=== PATIENT | female | born 1955 | race Caucasian/White ===

== ENCOUNTER 2020-05-04 21:46 | Observation (INO) ==
[2020-05-05] MEDS ORDERED: Naloxone 0.4 MG/ML INJ IVP PRN (01:47)
[2020-05-05] MEDS ORDERED: *HR* Heparin 5,000 UNIT/ML VIAL IVP ONE (01:51)
[2020-05-05] MEDS ORDERED: *HR* Heparin 5,000 UNIT/ML VIAL IVP PRN ×2 (01:51)
[2020-05-05 03:27] LABS: Hematocrit 40.4 % (35.3-44.9); Hemoglobin 12.8 g/dL (11.5-15.4); Mean Corpuscular HGB Conc 31.7 g/dL (31.6-35.5); Mean Corpuscular Hemoglobin 32.2 pg (28.0-33.3); Mean Corpuscular Volume 101.5 fL (83.0-100.0); Mean Platelet Volume 11.2 fL (9.4-12.4); Platelet Count 172 K/mcL (140-400); Red Blood Count 3.98 M/mcL (3.82-4.97); Red Cell Distribution Width 12.3 % (11.5-14.5)
[2020-05-05 03:32] LABS: Heparin anti-factor XA UFH 0.37 IU/mL (0.30-0.70)
[2020-05-05 03:33] LABS: Prothrombin Time 11.4 Seconds (9.4-12.1)
[2020-05-05] MEDS: Heparin 25,000 UNIT/250 ML D5W 25,000 UNIT/250 ML IV.SOLN IVC SCH (03:53)
[2020-05-05] MEDS ORDERED: Albuterol 2.5 MG/3 ML NEBULIZER IH PRN (06:46)
[2020-05-05] MEDS: predniSONE 20 MG TABLET PO SCH (09:38)
[2020-05-05] MEDS ORDERED: Acetaminophen 325 MG TABLET PO PRN (10:19)
[2020-05-05] MEDS ORDERED: Perflutren Lipid Microsphere 1.3 ML in 0.9 % Sodium Chloride 8.7 ML IVP PRN (10:22)
[2020-05-05] MEDS: Ipratropium/Albuterol Neb 3 ML IH SCH ×4 (10:28→23:42)
[2020-05-05] MEDS: Budesonide/Formoterol 160/4.5 1 PUFF INH IH SCH ×2 (10:38→23:42)
[2020-05-05] MEDS: Aspirin 81 MG TAB.CHEW PO SCH (11:51)
[2020-05-05] MEDS: *HR* LORazepam 1 MG TABLET PO PRN ×2 (17:41→23:16)
[2020-05-06 01:43] LABS: Basophils % 0.2 %; Eosinophils % 0.2 %; Hematocrit 39.6 % (35.3-44.9); Hemoglobin 12.6 g/dL (11.5-15.4); Immature Granulocytes % 0.4 % (0-4); Lymphocytes # 1.6 K/mcL (0.6-4.6); Lymphocytes % 16.2 %; Mean Corpuscular HGB Conc 31.8 g/dL (31.6-35.5); Mean Corpuscular Hemoglobin 31.5 pg (28.0-33.3); Mean Platelet Volume 11.1 fL (9.4-12.4); Monocytes # 1.7 K/mcL (0.0-1.3); Monocytes % 16.6 %; Neutrophils # 6.7 K/mcL (1.6-8.9); Platelet Count 199 K/mcL (140-400); Red Cell Distribution Width 12.4 % (11.5-14.5); Segmented Neutrophils % 66.4 %
[2020-05-06 01:44] LABS: White Blood Count 10.1 K/mcL (4.3-11.1)
[2020-05-06 02:00] LABS: BUN/Creatinine Ratio 15 (6-26); Blood Urea Nitrogen 11 mg/dL (8-23); Calcium 9.3 mg/dL (8.6-10.3); Carbon Dioxide 24 mEq/L (23-29); Chloride 104 mEq/L (98-107); Glucose 90 mg/dL (70-105); Osmolality,Calculated 285 (280-300); Potassium 3.7 mEq/L (3.5-5.1); Sodium 138 mEq/L (136-145); eGFR For African Americans > 60 (> 60); eGFR For Non-African Americans > 60 (> 60)
[2020-05-06 02:02] LABS: Chol/HDL Ratio 3.3 (0-4.9)
[2020-05-06] MEDS: Ipratropium/Albuterol Neb 3 ML IH SCH ×3 (03:43→15:35)
[2020-05-06] MEDS: Heparin 25,000 UNIT/250 ML D5W 25,000 UNIT/250 ML IV.SOLN IVC SCH (04:34)
[2020-05-06] MEDS: predniSONE 20 MG TABLET PO SCH (07:45)
[2020-05-06] MEDS: Aspirin 81 MG TAB.CHEW PO SCH (07:46)
[2020-05-06] MEDS: *HR* LORazepam 1 MG TABLET PO PRN (07:47)
[2020-05-06 08:59] LABS: Estimated Average Glucose 128 mg/dl
[2020-05-06] MEDS: Budesonide/Formoterol 160/4.5 1 PUFF INH IH SCH (11:27)
[2020-05-06] MEDS ORDERED: Nitroglycerin 1,000 MCG/10 ML VIAL IV ONE (14:10)
[2020-05-06] MEDS ORDERED: *HR* Heparin 10,000 UNIT/10 ML VIAL ONE (14:10)
[2020-05-06] MEDS ORDERED: ISOVUE-370 200 ML INFUS..BTL ONE (14:10)
[2020-05-06] MEDS ORDERED: 0.9 % Sodium Chloride 2,000 ML ONE (14:10)
[2020-05-06] MEDS ORDERED: Heparin 1,000 UNITS/500 mL 500 ML ONE (14:10)
[2020-05-06] MEDS ORDERED: *HR* Midazolam HCl 2 MG/2 ML VIAL ONE (14:36)
[2020-05-06 17:47] VITALS: BP 117/83
[2020-05-07] MEDS ORDERED: predniSONE 20 MG TABLET PO SCH (09:00)
== END 2020-05-06 18:28 | disposition home or self-care (01) ==
LOC: 2ANU → SUATTDRO 05-05 01:03
PROVIDERS: ADMIT Family Medicine; ATTEND Internal Medicine